=== PATIENT | female | born 1965 | race Caucasian/White ===

== ENCOUNTER 2016-05-05 16:56 | Emergency (ER) | payer OTHER ==
[~2016-05-05] VITALS: Ht 149.9 cm; Wt 76.0 kg
[~2016-05-05 16:56] MED LIST: ASPI325T PO; LIPI20TA PO; LISI-519 PO; METF-382 PO
[2016-05-05 17:04] VITALS: BP 174/97; PULSE 107; RESP 18; TEMP 97.8; O2SAT 98
[2016-05-05] MEDS ORDERED: KETOROLAC TROMETHAMINE 30 MG/ML (IVP) VIAL IVP ONE (17:15)
[2016-05-05] MEDS ORDERED: PROCHLORPERAZINE INJ 10 MG/2 ML VIAL IVS ONE (17:15)
[2016-05-05] MEDS ORDERED: SODIUM CHLOR 0.9% 1000 ML INJ 1,000 ML IV ONE (17:15)
[2016-05-05] MEDS ORDERED: LORazepam 0.5 MG TAB PO ONE (17:15)
[2016-05-05] MEDS ORDERED: diphenhydrAMINE HCL 50 MG/ML VIAL IV PUSH ONE (17:15)
[2016-05-05 17:26] VITALS: BP 144/77; PULSE 107; RESP 22; O2SAT 94
--- NOTE | 2016-05-05 17:28 | PD ---
HPI Chief Complaint: Neuro Symptoms/ Deficits Time Seen by Provider: 17:08 Travel History International Travel<30 days: No Contact w/Intl Traveler<30days: No Traveled to known affect area: No History of Present Illness HPI 50 year-old woman who presents to the emergency department complaining of headache. She has a history of headaches. She reports a history of CVA in the past in January 2014. Review of that visit show she presented with worsening left-sided weakness and clumsiness, negative MRI. She's had intermittent trouble with headaches since then. Serevent worsening left-sided weakness since then. She came in today stating that she had a headache. She has feels like her blood pressure is elevated. She just came back on her blood sugar medications are she had been off of for some time. She has been taking her blood pressure medicines. States her left-sided weakness is the same as it wasn 't she was discharge. Headache is been off-and-on, daily, since being discharged with 31st. Today started around 10 AM, subsided some, then worsened throughout the day. History Past Medical History Narrative Medical Diabetes Hypertension on hyperlipidemia Left-sided weakness a waxes and wanes, sometimes associated with headache, of unclear etiology but diagnosis CVA, TIA, complex migraines in the past. No MRI confirms strokes that I can see. Social History Alcohol Use: No Tobacco Use: No Allergies-Medications (Allergen,Severity, Reaction): Coded Allergies: No Known Allergies (Unverified , 05/05/16) Reported Meds & Prescriptions Reported Meds & Active Scripts Active Lisinopril 5 Mg Tab 5 Mg PO DAILY Metformin ER (Metformin HCl) 1,000 Mg Ravi 1,000 Mg PO DAILY With evening meal Lipitor (Atorvastatin Calcium) 20 Mg Tab 20 Mg PO DAILY Aspirin 325 Mg Tab 325 Mg PO DAILY Review of Systems Except as stated in HPI: all other systems reviewed are Neg Physical Exam Narrative GENERAL: 42 year-old woman, anxious, no acute distress. SKIN: Warm and dry. HEAD: Atraumatic. Normocephalic. CARDIOVASCULAR: Regular rate and rhythm. No murmur appreciated. RESPIRATORY: No accessory muscle use. Clear to auscultation. Breath sounds equal bilaterally. GASTROINTESTINAL: Abdomen soft, non-tender, nondistended. Hepatic and splenic margins not palpable. MUSCULOSKELETAL: No obvious deformities. No edema. NEUROLOGICAL: Awake and alert. No obvious cranial nerve deficits. No facial asymmetry. Motor grossly within normal limits. Left-sided weakness compared to the right diffusely on the left side. She is a little bit ataxic with her finger to nose as well. Normal [id number]. Normal speech. PSYCHIATRIC: Anxious. Data Data Last Documented VS Vital Signs Date Time Temp Pulse Resp B/P Pulse Ox O2 Delivery O2 Flow Rate FiO2 05/05/16 17:26 107 22 144/77 94 05/05/16 17:04 97.8 Orders Prochlorperazine Inj (Compazine Inj) (05/05/16 17:15) Diphenhydramine Inj (Benadryl Inj) (05/05/16 17:15) Sodium Chlor 0.9% 1000 Ml Inj (Ns 1000 M (05/05/16 17:15) Ketorolac Inj (Toradol Inj) (05/05/16 17:15) Lorazepam (Ativan) (05/05/16 17:15) Complete Blood Count With Diff (05/05/16 17:08) Basic Metabolic Panel (Bmp) (05/05/16 17:08) Iv Access Insert/Monitor (05/05/16 17:08) Labs Laboratory Tests Test 05/05/16 17:27 White Blood Count 9.0 TH/MM3 Red Blood Count 5.38 MIL/MM3 Hemoglobin 15.1 GM/DL Hematocrit 44.7 % Mean Corpuscular Volume 83.1 FL Mean Corpuscular Hemoglobin 28.0 PG Mean Corpuscular Hemoglobin 33.7 % Concent Red Cell Distribution Width 13.0 % Platelet Count 320 TH/MM3 Mean Platelet Volume 8.1 FL Neutrophils (%) (Auto) 50.6 % Lymphocytes (%) (Auto) 39.5 % Monocytes (%) (Auto) 6.9 % Eosinophils (%) (Auto) 2.3 % Basophils (%) (Auto) 0.7 % Neutrophils # (Auto) 4.6 TH/MM3 Lymphocytes # (Auto) 3.6 TH/MM3 Monocytes # (Auto) 0.6 TH/MM3 Eosinophils # (Auto) 0.2 TH/MM3 Basophils # (Auto) 0.1 TH/MM3 CBC Comment DIFF FINAL Differential Comment Sodium Level 136 MEQ/L Potassium Level 3.8 MEQ/L Chloride Level 97 MEQ/L Carbon Dioxide Level 26.1 MEQ/L Anion Gap 13 MEQ/L Blood Urea Nitrogen 8 MG/DL Creatinine 0.88 MG/DL Estimat Glomerular Filtration 69 ML/MIN Rate Random Glucose 294 MG/DL Calcium Level 9.7 MG/DL [facility] Medical Decision Making Medical Screen Exam Complete: Yes Emergency Medical Condition: Yes Interpretation(s) LABS: CBC unremarkable CMP remarkable for hyperglycemia Differential Diagnosis Headache, left-sided weakness, complex migraine, TIAs, other Narrative Course Medical decision making 50 year-old woman with intermittent headaches and intermittent left-sided weakness waxes and wanes with multiple previous workup for TIA and CVA that it been generally unremarkable. We'll treat headache, check screening labs, likely discharge for outpatient follow-up. She states that she is following up with a neurologist this month. FINAL: Patient much improved after migraine cocktail. States symptoms significantly improved. I suspect that her symptoms are likely due to complex migraine. Recommend continue supportive treatment. Diagnosis Primary Impression: Migraine Qualified Code: G43.009 - Migraine without aura and without status migrainosus , not intractable Additional Impression: Hemiparesis Additional Instructions: Continue current medications. Follow-up with her primary doctor in the next 2-4 days. Return to the emergency department for any new or worsening symptoms. Disposition: 01 DISCHARGE HOME Condition: Stable Dima Del Cid MD May 05, 2016 17:28
[2016-05-05 17:41] LABS: AUTOMATED NEUTROPHIL # 4.6 TH/MM3 (1.8-7.7); BASOPHIL # 0.1 TH/MM3 (0-0.2); BASOPHIL % 0.7 % (0.0-2.0); EOSINOPHIL # 0.2 TH/MM3 (0-0.4); EOSINOPHIL % 2.3 % (0.0-4.0); HEMATOCRIT 44.7 % (35.0-46.0); HEMO FLAGS DIFF FINAL; LYMPH % 39.5 % (9.0-44.0); LYMPHOCYTE # 3.6 TH/MM3 (1.0-4.8); MEAN CELL VOLUME 83.1 FL (80.0-100.0); MEAN CORPUSCULAR HGB CONC 33.7 % (32.0-36.0); MONO % 6.9 % (0.0-8.0); NEUT % 50.6 % (16.0-70.0); PLATELET COUNT 320 TH/MM3 (150-450); RED BLOOD COUNT 5.38 MIL/MM3 (4.00-5.30)
[2016-05-05 18:07] LABS: BICARBONATE 26.1 MEQ/L (21.0-32.0); POTASSIUM 3.8 MEQ/L (3.5-5.1)
--- NOTE | 2016-05-07 21:05 | EKG ---
Date Performed: 05/05/2016 Time Performed: 17:03:07 PTAGE: 50 years EKG: SINUS TACHYCARDIA NONSPECIFIC ST & T-WAVE ABNORMALITY ABNORMAL ECG PREVIOUS TRACING : 04/12/2016 12.17 Compared to prior tracing no significant change DOCTOR: Alex Han Interpretating Date/Time 05/07/2016 21:04:45
== END 2016-05-05 19:35 | disposition home or self-care (01) ==
LOC: NEPE 16:56
DX: G43.009 Migraine without aura, not intractable, without status migrainosus (principal); I69.354 Hemiplegia and hemiparesis following cerebral infarction affecting left non-dominant side; I10 Essential (primary) hypertension; R94.31 Abnormal electrocardiogram [ECG] [EKG]; E78.5 Hyperlipidemia, unspecified
CPT/HCPCS: 80048; 85025; 93005; 96361; 96374; 96375; 99284; J0780; J1200; J1885; J7030

== ENCOUNTER 2016-11-25 15:08 | Emergency (ER) | payer SELFPAY ==
[~2016-11-25] VITALS: Ht 149.9 cm; Wt 72.5 kg
[2016-11-25 15:10] VITALS: BP 179/90; PULSE 97; RESP 20; TEMP 97.8; O2SAT 99
--- NOTE | 2016-11-25 15:36 | PD ---
HPI Chief Complaint: Injury Time Seen by Provider: 15:23 Travel History International Travel<30 days: No Contact w/Intl Traveler<30days: No Traveled to known affect area: No History of Present Illness HPI PATIENT C/O THAT WHILE AT WORK ([employer]) SHE STEPPED ON A WET SPOT WITH ICE, AND HAD HER RIGHT ANKLE TWISTED FROM UNDER HER AND FELL. RT ANKLE PAIN, 6/ 10, WORSE WITH WEIGHT BEARING, NONRAD, NO GROSS DEFORMITY PFSH Past Medical History Hx Anticoagulant Therapy: No Asthma: Yes Bipolar Disorder: Yes Anxiety: Yes Depression: Yes Heart Rhythm Problems: No Cancer: No Cardiac Catheterization: Yes (X3) Cardiovascular Problems: Yes High Cholesterol: Yes Chemotherapy: No Chest Pain: Yes Congestive Heart Failure: No COPD: No Cerebrovascular Accident: Yes Diabetes: Yes (TYPE 2) Diminished Hearing: No Endocrine: Yes Gastrointestinal Disorders: No Genitourinary: No Heparin Induced Thrombocytopen: No Hypertension: Yes Immune Disorder: No Implanted Vascular Access Dvce: No Musculoskeletal: No Neurologic: Yes (cva) Psychiatric: Yes (BI POLAR, PTSD) Reproductive: Yes (UTERINE FIBROIDS) Respiratory: Yes (asthma) Thyroid Disease: No Tubal Ligation: Yes Past Surgical History Cardiac Surgery: Yes (HEART CATH) Section: Yes (X2) Coronary Artery Bypass Graft: No Gynecologic Surgery: Yes (ABLATION) Hysterectomy: Yes Other Surgery: Yes Social History Alcohol Use: No Tobacco Use: No Substance Use: No Allergies-Medications (Allergen,Severity, Reaction): Coded Allergies: No Known Allergies (Unverified , 11/25/16) Reported Meds & Prescriptions Reported Meds & Active Scripts Active Lisinopril 5 Mg Tab 5 Mg PO DAILY Metformin ER (Metformin HCl) 1,000 Mg Ravi 1,000 Mg PO DAILY With evening meal Lipitor (Atorvastatin Calcium) 20 Mg Tab 20 Mg PO DAILY Aspirin 325 Mg Tab 325 Mg PO DAILY Review of Systems Except as stated in HPI: all other systems reviewed are Neg Physical Exam Narrative GENERAL: SKIN: Warm and dry. HEAD: Atraumatic. Normocephalic. EYES: Pupils equal and round. No scleral icterus. No injection or drainage. ENT: No nasal bleeding or discharge. Mucous membranes pink and moist. NECK: Trachea midline. No JVD. CARDIOVASCULAR: Regular rate and rhythm. RESPIRATORY: No accessory muscle use. Clear to auscultation. Breath sounds equal bilaterally. GASTROINTESTINAL: Abdomen soft, non-tender, nondistended. MUSCULOSKELETAL: Extremities without clubbing, cyanosis, or edema. No obvious deformities. NEUROLOGICAL: Awake and alert. No obvious cranial nerve deficits. Motor grossly within normal limits. Five out of 5 muscle strength in the arms and legs. Normal speech. PSYCHIATRIC: Appropriate mood and affect; insight and judgment normal. Data Data Last Documented VS Vital Signs Date Time Temp Pulse Resp B/P Pulse Ox O2 Delivery O2 Flow Rate FiO2 11/25/16 15:51 16 98 Room Air 11/25/16 15:10 97.8 97 179/90 Orders Ankle, Complete ([id number]) (11/25/16 ) Splint Or Brace Apply/Monitor (11/25/16 15:56) [facility] Medical Decision Making Medical Screen Exam Complete: Yes Emergency Medical Condition: Yes Medical Record Reviewed: Yes Differential Diagnosis ANKLE SPRAIN V FX V DISLOCATION Narrative Course XR NEG FOR FX OR DISLOCATION Diagnosis Primary Impression: RIGHT ANKLE SPRAIN Patient Instructions: Ankle Sprain (ED), Ankle Sprain Exercises (GEN), General Instructions Scripts Naproxen DR (Naproxen EC)375 Mg [id number] Mg PO BID #20 TAB Ref 0 Prov:Boogie Bautista MD 11/25/16 Tramadol (Ultram)50 Mg Tab50 Mg PO Q4H PRN (PAIN) #14 TAB Prov:Boogie Bautista MD 11/25/16 Disposition: 01 DISCHARGE HOME Condition: Stable Boogie Bautista MD Nov 25, 2016 15:36
--- NOTE | 2016-11-25 15:50 | RADRPT ---
EXAM DATE/TIME: 11/25/2016 15:44 [facility] COMPARISON: No previous studies available for comparison. INDICATIONS : Pain from twisting motion. MEDICAL HISTORY : None. SURGICAL HISTORY : None. ENCOUNTER: Initial ACUITY: 1 day PAIN SCORE: 5/10 LOCATION: Right ankle. FINDINGS: Three view exam was performed of the right ankle. The bony structures are in normal alignment. No e vidence of fracture, dislocation, or soft tissue swelling. The ankle mortise is intact. No radiopaq ue foreign bodies are seen. Bony mineralization is normal. CONCLUSION: No acute disease. Tha Avila MD on November 25, 2016 at 15:49 Board Certified Radiologist. This report was verified electronically.
[2016-11-25] MEDS ORDERED: ULTR50TA5 PO (15:59)
[2016-11-25] MEDS ORDERED: NAPR-239 PO (15:59)
== END 2016-11-25 16:49 | disposition home or self-care (01) ==
LOC: NEPD 15:08
DX: S93.401A Sprain of unspecified ligament of right ankle, initial encounter (principal); W01.0XXA Fall on same level from slipping, tripping and stumbling without subsequent striking against object, initial encounter; Y92.511 Restaurant or cafe as the place of occurrence of the external cause; Y99.0 Civilian activity done for income or pay
CPT/HCPCS: 29540; 73610; 99283; L1906

== ENCOUNTER 2017-01-31 18:25 | Emergency (ER) | payer BC ==
[~2017-01-31] VITALS: Ht 144.8 cm; Wt 65.9 kg
[~2017-01-31 18:25] MED LIST changes: +NAPR-239 PO; +ULTR50TA5 PO
[2017-01-31 18:26] VITALS: BP 184/96; PULSE 95; RESP 12; TEMP 98.2; O2SAT 96
--- NOTE | 2017-01-31 18:33 | PD ---
Physical Exam Date Seen by Provider: Jan 31, 2017 Time Seen by Provider: 18:31 Narrative 51-year-old female presents the emergency department with sudden onset left eye discomfort, and lower eyelid swelling. Patient states his vision is mildly blurry and feels like there is a lot of pressure behind it. Patient states pain is 7 out of 10. Patient denies headache, fever, sore throat , or ear pain. Denies trauma. No contacts. She has no known drug allergies Data Data Last Documented VS Vital Signs Date Time Temp Pulse Resp B/P (MAP) Pulse Ox O2 Delivery O2 Flow Rate FiO2 01/31/17 18:26 98.2 95 12 184/96 (125) 96 MDM Medical Record Reviewed: Yes Supervised Visit with KATELYN: Yes Narrative Course Patient is medically stable. Vital signs are stable. Patient awaiting bed placement Condition: Stable Nikos Petty Jan 31, 2017 18:33
[2017-01-31] MEDS ORDERED: PROPARACAINE HCL 0.5% OPHT SOLN 15 ML BTL LEFT EYE ONE (20:00)
--- NOTE | 2017-01-31 20:15 | PD ---
HPI Chief Complaint: Eye Problems/Injury Time Seen by Provider: 19:49 Travel History International Travel<30 days: No Contact w/Intl Traveler<30days: No Traveled to known affect area: No History of Present Illness HPI Patient comes in complaining of left eye pain that she awoke with around midnight. Patient describes pain as a pressure-like pain behind her eye. Patient reports causing some blurriness with this. Patient reports that she wears glasses but did not bring them with her. Patient denies any discharge or foreign body sensation. Denies any trauma. Patient was having mild intermittent headaches with this. Patient reports she has residual weakness in her left upper and lower extremity from previous strokes is unchanged. Patient states that she feels over the past couple of months that the weakness in her left hand has gotten slightly worse but denies any acute changes. Denies any chest pain, shortness of breath, nausea, vomiting, neck pain, loss or change in bowel or bladder, slurring of speech, new numbness or weakness, or abdominal pain. PFSH Past Medical History Hx Anticoagulant Therapy: No Asthma: Yes Bipolar Disorder: Yes Anxiety: Yes Depression: Yes Heart Rhythm Problems: No Cancer: No Cardiac Catheterization: Yes (X3) Cardiovascular Problems: Yes High Cholesterol: Yes Chemotherapy: No Chest Pain: Yes Congestive Heart Failure: No COPD: No Cerebrovascular Accident: Yes Diabetes: Yes Diminished Hearing: No Endocrine: Yes Gastrointestinal Disorders: No Genitourinary: No Heparin Induced Thrombocytopen: No Hypertension: Yes Immune Disorder: No Implanted Vascular Access Dvce: No Musculoskeletal: No Neurologic: Yes (cva) Psychiatric: Yes (BI POLAR, PTSD) Reproductive: Yes (UTERINE FIBROIDS) Respiratory: Yes (asthma) Thyroid Disease: No Tubal Ligation: Yes Past Surgical History Cardiac Surgery: Yes (HEART CATH) Section: Yes (X2) Coronary Artery Bypass Graft: No Gynecologic Surgery: Yes (ABLATION) Hysterectomy: Yes Other Surgery: Yes Social History Alcohol Use: No Tobacco Use: No Substance Use: No Allergies-Medications (Allergen,Severity, Reaction): Coded Allergies: No Known Allergies (Unverified , 11/25/16) Reported Meds & Prescriptions Reported Meds & Active Scripts Active Naproxen EC (Naproxen) 375 Mg Tabdr 375 Mg PO BID Ultram (Tramadol HCl) 50 Mg Tab 50 Mg PO Q4H PRN Lisinopril 5 Mg Tab 5 Mg PO DAILY Metformin ER (Metformin HCl) 1,000 Mg Ravi 1,000 Mg PO DAILY With evening meal Lipitor (Atorvastatin Calcium) 20 Mg Tab 20 Mg PO DAILY Aspirin 325 Mg Tab 325 Mg PO DAILY Review of Systems Except as stated in HPI: all other systems reviewed are Neg Physical Exam Narrative GENERAL: Well-developed, overly nourished, in no acute distress, and non-ill appearing. SKIN: Focused skin assessment warm and dry. HEAD: Atraumatic. Normocephalic. EYES: Pupils equal and round. EOMI. No scleral icterus. No injection or drainage. No tenderness bilateral temporal arteries to palpation. ENT: No nasal bleeding or discharge. Mucous membranes pink and moist. NECK: Trachea midline. Supple. No nuclear rigidity. RESPIRATORY: No accessory muscle use. No respiratory distress. MUSCULOSKELETAL: No obvious deformities. No clubbing. No cyanosis. No edema. Full range of motion. NEUROLOGICAL: Awake and alert. No obvious cranial nerve deficits. Motor grossly within normal limits. Normal speech. Equal rise and fall of eyebrows bilaterally. Smile symmetrical. No deviation of the tongue. 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 Patient has decreased strength left lower extremity plantar and dorsal flexion the patient reports is chronic denies any new symptoms of this. Sensation intact and equal over first web spacing bilateral lower extremities. Sensation intact and equal bilateral deltoid muscles. PSYCHIATRIC: Appropriate mood and affect; insight and judgment normal. Data Data Last Documented VS Vital Signs Date Time Temp Pulse Resp B/P (MAP) Pulse Ox O2 Delivery O2 Flow Rate FiO2 01/31/17 18:26 98.2 95 12 184/96 (125) 96 Orders Orders Proparacaine 0.5% Opth Soln (Alcaine 0.5 (01/31/17 20:00) Ct Brain W/O Iv Contrast(Rout) (01/31/17 ) Ed Discharge Order (01/31/17 20:53) [facility] Medical Decision Making Medical Screen Exam Complete: Yes Emergency Medical Condition: Yes Differential Diagnosis Glaucoma, conjunctivitis, foreign body, corneal abrasion, corneal ulcer, temporal arthritis, CVA, TIA, mass Narrative Course Visual acuity checked and found 20/70 OD, 20/70 both eyes, patient reports unable to make out anything with blurriness out of her left eye. Patient in no obvious distress upon re-evaluation. All pertinent Radiology result(s) discussed with patient. Discussed patient with Dr. Banerjee prior to discharge, who is in agreement with plan of care and disposition. Any questions /concerns in reference to patient diagnosis/condition discussed and clarified prior to patient's discharge. Reinforced sheer importance of close follow up with Dr. Hui tomorrow. Instructed patient to return to ED immediately, if symptoms return/worsen. Patient showed understanding of above instructions. Further instructions and recommendations were detailed in discharge paperwork. Patient ambulated without difficulty out of ED at discharge. Procedures Procedure Narrative Verbal consent was obtained. Affected eye was anesthetized using proparacaine. Tyrone-Pen was used to check IOP was noted to be 18, 16, and 15. Fluorescein staining and Wood lamp exam performed with no uptake seen. Negative Eric sign. No hyphema, hyperemia, or rust ring. Eyelid was everted with no foreign body noted. No tenderness bilateral temporal arteries to palpation. Patient tolerated procedure well.y Physician Communication Physician Communication [address] Hui, horseradish maker second language tutor, states she cannot think of anything else to do an emergency department, but patient to be seen in her office tomorrow if she calls in the a.m. they can work her in for an appointment. Diagnosis Primary Impression: Blurry vision, left eye Referrals: Chaparrita Hui MD 1 day Patient Instructions: Blurred Vision (ED), General Instructions Departure Forms: Work Release Enter return to work date: Feb 02, 2017 Additional Instructions: Follow-up with Dr. Hui tomorrow. Call her office at 8 AM for an appointment. Return to the emergency department if symptoms get worse. Disposition: 01 DISCHARGE HOME Condition: Stable Sky Norman Jan 31, 2017 20:15
--- NOTE | 2017-01-31 20:24 | RADRPT ---
EXAM DATE/TIME: 01/31/2017 20:09 [facility] COMPARISON: CT BRAIN W/O CONTRAST, April 12, 2016, 12:27. INDICATIONS : Pressure and blurred vision to left eye RADIATION DOSE: 29.90 CTDIvol (mGy) MEDICAL HISTORY : Cardiovascular disease. Hypertension. Diabetes SURGICAL HISTORY : Hysterectomy. ENCOUNTER: Initial ACUITY: 1 day PAIN SCALE: 7/10 LOCATION: cranial TECHNIQUE: Multiple contiguous axial images were obtained of the head. Using automated exposure control and adj ustment of the mA and/or kV according to patient size, radiation dose was kept as low as reasonably a chievable to obtain optimal diagnostic quality images. DICOM format image data is available electro nically for review and comparison. FINDINGS: CEREBRUM: The ventricles are normal for age. No evidence of midline shift, mass lesion, hemorrhage or acute in farction. No extra-axial fluid collections are seen. POSTERIOR FOSSA: The cerebellum and brainstem are intact. The 4th ventricle is midline. The cerebellopontine angle i s unremarkable. EXTRACRANIAL: The visualized portion of the orbits is intact. SKULL: The calvaria is intact. No evidence of skull fracture. CONCLUSION: Normal examination. Jayden Pisano MD on January 31, 2017 at 20:21 Board Certified Radiologist. This report was verified electronically.
--- NOTE | 2017-02-01 21:31 | EKG ---
Date Performed: 01/31/2017 Time Performed: 19:52:56 PTAGE: 51 years EKG: Sinus rhythm MINIMAL ST DEPRESSION BORDERLINE ECG PREVIOUS TRACING : 05/05/2016 17.03 Compared to prior tracing no significant change DOCTOR: Tato Carranza Interpretating Date/Time 02/01/2017 21:28:40
== END 2017-01-31 21:31 | disposition home or self-care (01) ==
LOC: NEPC 18:25
DX: H53.8 Other visual disturbances (principal); E11.9 Type 2 diabetes mellitus without complications; I10 Essential (primary) hypertension; Z79.84 Long term (current) use of oral hypoglycemic drugs; Z79.899 Other long term (current) drug therapy
CPT/HCPCS: 70450; 93005; 99284